=== PATIENT | male | born 1985 | race Caucasian/White ===

== ENCOUNTER → 2018-03-07 | Outpatient (REF) | payer BC ==
[2018-03-07 17:59] LABS: BASO # 0.1 10^3/uL (0.0-0.2); BASO % 0.6 % (0.0-1.0); EOS # 0.5 10^3/uL (0.0-0.50); EOS % 4.6 % (0.0-3.0); HEMATOCRIT 42.5 % (42.0-52.0); HEMOGLOBIN 14.9 g/dl (13.5-17.5); IMMATURE GRANULOCYTE % 0.2 % (0-3.0); LYMPH # 4.1 10^3/uL (1.5-4.5); LYMPH % 37.3 % (24.0-44.0); MEAN CORPUSCULAR HEMOGLOBIN 30.8 pg (27.0-33.0); MEAN CORPUSCULAR HGB CONC 35.1 g/dl (32.0-36.5); MEAN CORPUSCULAR VOLUME 87.8 fl (80.0-96.0); MONO # 0.7 10^3/uL (0.0-0.8); MONO % 6.4 % (0.0-5.0); NEUTROPHILS # 5.6 10^3/uL (1.8-7.7); NEUTROPHILS % 50.9 % (36.0-66.0); PLATELET COUNT, AUTOMATED 334 10^3/uL (150-450); RED BLOOD COUNT 4.84 10^6/uL (4.30-6.10)
[2018-03-07 18:07] LABS: PROSTATIC SPECIFIC AG MONITOR 0.7 NG/ML (< 4.0)
[2018-03-07 18:13] LABS: TESTOSTERONE 283 NG/DL (241-827)
== END ==
LOC: M LAB REF 16:40
DX: N52.2 Drug-induced erectile dysfunction (principal); F11.11 Opioid abuse, in remission
CPT/HCPCS: 84403

== ENCOUNTER → 2018-03-28 | Outpatient (REF) | payer BC | LOC: M LAB REF 12:21 | PROVIDERS: ATTEND Family Medicine Addiction Medicine | DX: R79.89 Other specified abnormal findings of blood chemistry (principal) ==

== ENCOUNTER → 2019-03-28 | Outpatient (REF) | payer BC | LOC: M LAB REF 12:56 | PROVIDERS: ATTEND Nurse Practitioner Adult Health | DX: E11.11 Type 2 diabetes mellitus with ketoacidosis with coma (principal) ==

== ENCOUNTER → 2019-12-02 | Outpatient (CLI) | payer OTHER ==
[~2019-12-02] MED LIST: BUPRENORPHINE/NALOX
== END ==
LOC: M OUTALCOH 13:36
PROVIDERS: ATTEND Psychiatry & Neurology Addiction Medicine
DX: F15.20 Other stimulant dependence, uncomplicated (principal)

== ENCOUNTER 2019-12-22 11:53 | Emergency (ER) | payer OTHER ==
[~2019-12-22] VITALS: Ht 165.1 cm; Wt 83.2 kg
[2019-12-22] MEDS ORDERED: BUPRENORPHINE/NALOX (12:03)
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
[2019-12-22] MEDS ORDERED: IBUPROFEN 800 MG TAB PO ONE (14:00)
[2019-12-22 14:10] VITALS: BP 134/75
== END 2019-12-22 14:11 | disposition home or self-care (01) ==
LOC: M ED 11:53
DX: S16.1XXA Strain of muscle, fascia and tendon at neck level, initial encounter (principal); V49.50XA Passenger injured in collision with unspecified motor vehicles in traffic accident, initial encounter; F17.210 Nicotine dependence, cigarettes, uncomplicated

== ENCOUNTER → 2019-12-24 | Outpatient (RCR) | payer OTHER | LOC: M OUTALCOH 12-09 15:35 | PROVIDERS: ATTEND Psychiatry & Neurology Addiction Medicine | DX: F10.10 Alcohol abuse, uncomplicated (principal); F15.20 Other stimulant dependence, uncomplicated ==

== ENCOUNTER 2020-01-21 13:39 | Outpatient (RCR) | payer OTHER | END 2020-01-24 | LOC: M OUTALCOH 13:39 | PROVIDERS: ATTEND Psychiatry & Neurology Addiction Medicine | DX: F10.10 Alcohol abuse, uncomplicated (principal); F15.20 Other stimulant dependence, uncomplicated ==

== ENCOUNTER 2020-02-18 13:28 | Outpatient (RCR) | payer OTHER | END 2020-02-23 | LOC: M OUTALCOH 13:28 | PROVIDERS: ATTEND Psychiatry & Neurology Addiction Medicine | DX: F10.10 Alcohol abuse, uncomplicated (principal); F15.20 Other stimulant dependence, uncomplicated ==

== ENCOUNTER 2020-03-24 16:00 | Outpatient (RCR) | payer OTHER | END 2020-03-25 | LOC: M OUTALCOH 16:00 | PROVIDERS: ATTEND Psychiatry & Neurology Addiction Medicine | DX: F10.10 Alcohol abuse, uncomplicated (principal); F15.20 Other stimulant dependence, uncomplicated ==

== ENCOUNTER 2020-04-23 14:41 | Outpatient (RCR) | payer OTHER | END 2020-04-25 | LOC: M OUTALCOH 14:41 | PROVIDERS: ATTEND Psychiatry & Neurology Addiction Medicine | DX: F10.10 Alcohol abuse, uncomplicated (principal); F15.20 Other stimulant dependence, uncomplicated ==

== ENCOUNTER 2020-05-21 11:11 | Outpatient (RCR) | payer OTHER | END 2020-05-23 | LOC: M OUTALCOH 11:11 | PROVIDERS: ATTEND Psychiatry & Neurology Addiction Medicine | DX: F10.10 Alcohol abuse, uncomplicated (principal); F15.20 Other stimulant dependence, uncomplicated ==

== ENCOUNTER → 2020-06-23 | Outpatient (RCR) | payer OTHER | LOC: M OUTALCOH 06-11 14:15 | PROVIDERS: ATTEND Psychiatry & Neurology Psychiatry | DX: F10.10 Alcohol abuse, uncomplicated (principal); F15.20 Other stimulant dependence, uncomplicated ==

== ENCOUNTER → 2020-07-23 | Outpatient (RCR) | payer OTHER | LOC: M OUTALCOH 06-25 08:45 | PROVIDERS: ATTEND Psychiatry & Neurology Psychiatry | DX: F10.10 Alcohol abuse, uncomplicated (principal); F15.20 Other stimulant dependence, uncomplicated ==

== ENCOUNTER 2020-08-20 13:23 | Outpatient (RCR) | payer OTHER | END 2020-08-23 | LOC: M OUTALCOH 13:23 | PROVIDERS: ATTEND Psychiatry & Neurology Psychiatry | DX: F10.10 Alcohol abuse, uncomplicated (principal); F15.20 Other stimulant dependence, uncomplicated ==

== ENCOUNTER 2020-09-20 14:00 | Outpatient (RCR) | payer OTHER | END 2020-09-22 | LOC: M OUTALCOH 14:00 | PROVIDERS: ATTEND Psychiatry & Neurology Psychiatry | DX: F10.10 Alcohol abuse, uncomplicated (principal); F15.20 Other stimulant dependence, uncomplicated ==

== ENCOUNTER 2020-10-22 13:03 | Outpatient (RCR) | payer OTHER | END 2020-10-23 | LOC: M OUTALCOH 13:03 | PROVIDERS: ATTEND Psychiatry & Neurology Psychiatry | DX: F10.10 Alcohol abuse, uncomplicated (principal); F15.20 Other stimulant dependence, uncomplicated ==

== ENCOUNTER 2020-11-22 15:00 | Outpatient (RCR) | payer OTHER | END 2020-11-23 | LOC: M OUTALCOH 15:00 | PROVIDERS: ATTEND Psychiatry & Neurology Psychiatry | DX: F10.10 Alcohol abuse, uncomplicated (principal); F15.20 Other stimulant dependence, uncomplicated ==

== ENCOUNTER 2020-12-20 14:00 | Outpatient (RCR) | payer OTHER | END 2020-12-23 | LOC: M OUTALCOH 14:00 | PROVIDERS: ATTEND Psychiatry & Neurology Psychiatry | DX: F10.10 Alcohol abuse, uncomplicated (principal); F15.20 Other stimulant dependence, uncomplicated ==

== ENCOUNTER 2021-01-20 09:00 | Outpatient (RCR) | payer OTHER | END 2021-01-23 | LOC: M OUTALCOH 09:00 | PROVIDERS: ATTEND Psychiatry & Neurology Psychiatry | DX: F10.10 Alcohol abuse, uncomplicated (principal); F15.20 Other stimulant dependence, uncomplicated ==

== ENCOUNTER 2021-01-21 01:37 | Emergency (ER) | payer OTHER ==
[~2021-01-21] VITALS: Ht 165.1 cm; Wt 85.4 kg
[2021-01-21 01:48] VITALS: BP 137/68
== END 2021-01-21 03:45 | disposition left against medical advice (07) ==
LOC: M ED 01:37
DX: Z53.21 Procedure and treatment not carried out due to patient leaving prior to being seen by health care provider (principal)

== ENCOUNTER 2021-02-03 09:00 | Outpatient (RCR) | payer OTHER | END 2021-02-22 | LOC: M OUTALCOH 09:00 | PROVIDERS: ATTEND Psychiatry & Neurology Psychiatry | DX: F10.10 Alcohol abuse, uncomplicated (principal); F15.20 Other stimulant dependence, uncomplicated ==

== ENCOUNTER 2021-03-16 08:00 | Outpatient (RCR) | payer OTHER | END 2021-03-25 | LOC: M OUTALCOH 08:00 | PROVIDERS: ATTEND Psychiatry & Neurology Psychiatry | DX: F10.10 Alcohol abuse, uncomplicated (principal); F15.20 Other stimulant dependence, uncomplicated ==

== ENCOUNTER 2021-04-12 13:33 | Outpatient (RCR) | payer OTHER | END 2021-04-25 | LOC: M OUTALCOH 13:33 | PROVIDERS: ATTEND Psychiatry & Neurology Psychiatry | DX: F10.10 Alcohol abuse, uncomplicated (principal); F15.20 Other stimulant dependence, uncomplicated ==

== ENCOUNTER 2021-04-18 12:52 | Outpatient (RCR) | payer OTHER | END 2021-04-25 | LOC: M OUTALCOH 12:52 | PROVIDERS: ATTEND Psychiatry & Neurology Psychiatry | DX: F15.20 Other stimulant dependence, uncomplicated (principal) ==

== ENCOUNTER → 2021-04-29 | Outpatient (CLI) | payer OTHER | LOC: M EKG 15:09 | PROVIDERS: ATTEND Family Medicine | DX: F11.20 Opioid dependence, uncomplicated (principal) ==

== ENCOUNTER → 2021-06-02 | Outpatient (CLI) | payer OTHER ==
[2021-06-02 15:22] LABS: BASO # 0.1 10^3/uL (0.0-0.2); BASO % 0.5 % (0.0-1.0); EOS # 0.2 10^3/uL (0.0-0.5); HEMATOCRIT 42.2 % (42.0-52.0); HEMOGLOBIN 14.5 g/dl (13.5-17.5); LYMPH # 3.2 10^3/uL (1.5-5.0); LYMPH % 30.7 % (24.0-44.0); MEAN CORPUSCULAR HEMOGLOBIN 29.5 pg (27.0-33.0); MEAN CORPUSCULAR HGB CONC 34.4 g/dl (32.0-36.5); MEAN CORPUSCULAR VOLUME 85.9 fl (80.0-96.0); MONO # 0.6 10^3/uL (0.0-0.8); MONO % 5.4 % (2.0-8.0); NEUTROPHILS # 6.3 10^3/uL (1.5-8.5); PLATELET COUNT, AUTOMATED 366 10^3/uL (150-450); RED BLOOD COUNT 4.91 10^6/uL (4.30-6.10); WHITE BLOOD COUNT 10.3 10^3/uL (4.0-10.0)
[2021-06-02 15:50] LABS: ALBUMIN 4.2 GM/DL (3.2-5.2); ALT/SGPT 91 U/L (12-78); BILIRUBIN,TOTAL 0.5 MG/DL (0.2-1.0); BLOOD UREA NITROGEN 21 MG/DL (7-18); CALCIUM LEVEL 9.6 MG/DL (8.5-10.1); CARBON DIOXIDE LEVEL 31 MEQ/L (21-32); CHLORIDE LEVEL 105 MEQ/L (98-107); CREATININE FOR GFR 0.94 MG/DL (0.70-1.30); GLOMERULAR FILTRATION RATE > 60.0 (>60); GLUCOSE, FASTING 105 MG/DL (70-100); SODIUM LEVEL 140 MEQ/L (136-145); TOTAL PROTEIN 7.5 GM/DL (6.4-8.2)
[2021-06-02 16:29] LABS: HEPATITIS C VIRUS ABY INDEX 0.1 INDEX (<0.8); HIV 1&2 SCREEN CENTAUR NEGATIVE (NEGATIVE)
== END ==
LOC: M LAB 14:38
PROVIDERS: ATTEND Nurse Practitioner Family
DX: F11.21 Opioid dependence, in remission (principal); F15.20 Other stimulant dependence, uncomplicated

== ENCOUNTER 2023-03-29 23:59 | Emergency (ER) | payer OTHER ==
[~2023-03-29] VITALS: Ht 165.1 cm; Wt 75.4 kg
[2023-03-29 23:59] VITALS: BP 136/70; TEMP 96.8; O2SAT 98
== END 2023-03-30 00:14 | disposition left against medical advice (07) ==
LOC: M ED 23:59
DX: Z53.21 Procedure and treatment not carried out due to patient leaving prior to being seen by health care provider (principal)

== ENCOUNTER 2023-07-14 03:13 | Inpatient (IN) | payer OTHER ==
[~2023-07-14] VITALS: Ht 165.1 cm; Wt 70.8 kg
[2023-07-14] MEDS ORDERED: VYVA30CA4 PO (03:47)
[2023-07-14] MEDS ORDERED: BUPR1FIL SL (03:47)
[2023-07-14 04:20] LABS: HEMATOCRIT 41.5 % (42.0-52.0); HEMOGLOBIN 14.2 g/dl (13.5-17.5); MEAN CORPUSCULAR HEMOGLOBIN 30.1 pg (27.0-33.0); MEAN CORPUSCULAR HGB CONC 34.2 g/dl (32.0-36.5); MEAN CORPUSCULAR VOLUME 88.1 fl (80.0-96.0); PLATELET COUNT, AUTOMATED 426 10^3/uL (150-450); RED BLOOD COUNT 4.71 10^6/uL (4.30-6.10); WHITE BLOOD COUNT 7.7 10^3/uL (4.0-10.0)
[2023-07-14 04:22] LABS: BARBITURATES URINE NEGATIVE (NEGATIVE); BENZODIAZEPINES URINE NEGATIVE (NEGATIVE); METHADONE URINE NEGATIVE (NEGATIVE); OPIATES URINE NEGATIVE (NEGATIVE); PHENCYCLIDINE URINE NEGATIVE (NEGATIVE)
[2023-07-14 04:24] LABS: ETHYL ALCOHOL (ETHANOL) 0.006 % (0.000-0.010)
[2023-07-14 04:26] LABS: ALBUMIN 3.5 G/DL (3.2-5.2); ALKALINE PHOSPHATASE 90 U/L (46-116); ALT/SGPT 47 U/L (7.0-40); AST/SGOT 44 U/L (<34); BILIRUBIN,DIRECT 0.2 MG/DL (<0.4); BILIRUBIN,TOTAL 0.5 MG/DL (0.3-1.2); BLOOD UREA NITROGEN 15 MG/DL (9-23); CARBON DIOXIDE LEVEL 27 MMOL/L (20-31); CHLORIDE LEVEL 103 MMOL/L (98-107); CREATININE FOR GFR 0.79 MG/DL (0.70-1.30); GLOMERULAR FILTRATION RATE > 60.0 (>60); GLUCOSE, FASTING 131 MG/DL (60-100); POTASSIUM SERUM 4.1 MMOL/L (3.5-5.1); SALICYLATE LEVEL < 3.0 MG/DL (<30); SODIUM LEVEL 137 MMOL/L (136-145); TOTAL PROTEIN 6.3 G/DL (5.7-8.2)
[2023-07-14 04:28] LABS: THYROID STIMULATING HORMONE 2.373 uIU/ML (0.55-4.78)
[2023-07-14 04:49] LABS: AMPHETAMINES LEVEL URINE POSITIVE (NEGATIVE); CANNABINOIDS URINE POSITIVE (NEGATIVE); COCAINE METABOLITE URINE POSITIVE (NEGATIVE)
[2023-07-14] MEDS ORDERED: HOME MED LIST COMPLETE! XX SCH ×2 (14:35→18:45)
[2023-07-14] MEDS ORDERED: ACETAMINOPHEN TAB 650MG DOSE (2X325MG) PO PRN (16:55)
[2023-07-14] MEDS ORDERED: IBUPROFEN 400MG TAB PO PRN (16:55)
[2023-07-14] MEDS ORDERED: MAALOX 30 ML SUSP *UDC PO PRN (16:55)
[2023-07-14] MEDS ORDERED: MOM 30ML SUSPENSION UDC PO PRN (16:55)
[2023-07-14] MEDS ORDERED: diphenhydrAMINE 25MG CAP PO PRN (16:55)
[2023-07-14 17:55] VITALS: BP 156/80; TEMP 97.6; O2SAT 99
[2023-07-14] MEDS: traZODone 50 MG TAB PO PRN (20:59)
[2023-07-15 06:30] VITALS: BP 144/68; TEMP 98.7; O2SAT 99
[2023-07-15 15:45] LABS: HEPATITIS B CORE ANTIBODY IGM NEGATIVE (NEGATIVE)
[2023-07-15 15:46] LABS: HEPATITIS C VIRUS ABY INDEX < 0.02 INDEX (<0.8)
[2023-07-15 16:30] VITALS: BP 119/62; TEMP 98; O2SAT 99
[2023-07-16 06:17] VITALS: BP 109/64; TEMP 97.9; O2SAT 99
[2023-07-16] MEDS: BUPRENORPHINE/NALOXONE 8-2MG SUBLINGUAL TABLET(SUBOXONE) SL ONE (12:22)
== END 2023-07-16 14:20 | disposition home or self-care (01) | DRG 754 ==
LOC: M ED 03:13 → M ED INP 16:51 → M PSY 17:50
PROVIDERS: ADMIT Student in an Organized Health Care Education/Training Program; ATTEND Student in an Organized Health Care Education/Training Program
DX: F32.A Depression, unspecified (principal); R45.850 Homicidal ideations; R45.851 Suicidal ideations; Z91.119 Patient's noncompliance with dietary regimen due to unspecified reason; F15.90 Other stimulant use, unspecified, uncomplicated; F10.10 Alcohol abuse, uncomplicated; F14.90 Cocaine use, unspecified, uncomplicated; Z59.00 Homelessness unspecified; F17.200 Nicotine dependence, unspecified, uncomplicated; R73.9 Hyperglycemia, unspecified; F12.90 Cannabis use, unspecified, uncomplicated

== ENCOUNTER → 2023-08-02 | Outpatient (CLI) | payer MEDICAID, OTHER ==
[~2023-08-02] MED LIST changes: +BUPR1FIL SL; +VYVA30CA4 PO
[2023-08-02 13:00] LABS: APPEARANCE, URINE CLEAR (CLEAR); BACTERIA, URINE AUTO NEGATIVE (NEGATIVE); BILIRUBIN, URINE AUTO NEGATIVE (NEGATIVE); BLOOD, URINE BLOOD 1+ (NEGATIVE); COLOR, URINE STRAW (YELLOW); GLUCOSE, URINE (UA) AUTO NEGATIVE (NEGATIVE); KETONE, URINE AUTO NEGATIVE (NEGATIVE); LEUKOCYTE ESTERASE, URINE AUTO NEGATIVE (NEGATIVE); NITRITE, URINE AUTO NEGATIVE (NEGATIVE); PROTEIN, URINE AUTO NEGATIVE (NEGATIVE); RBC, URINE AUTO 0 /HPF (0-3); SPECIFIC GRAVITY URINE AUTO 1.004 (1.002-1.035); SQUAMOUS EPITHELIAL CELL UR AU 0 /HPF (0-6); UROBILINOGEN, URINE AUTO 0.2 mg/dL (0.0-2.0); WBC, URINE AUTO 1 /HPF (0-3)
[2023-08-02 13:01] LABS: HEMATOCRIT 44.5 % (42.0-52.0); MEAN CORPUSCULAR HEMOGLOBIN 29.9 pg (27.0-33.0); MEAN CORPUSCULAR HGB CONC 33.7 g/dl (32.0-36.5); MEAN CORPUSCULAR VOLUME 88.6 fl (80.0-96.0); PLATELET COUNT, AUTOMATED 375 10^3/uL (150-450); RED BLOOD COUNT 5.02 10^6/uL (4.30-6.10); WHITE BLOOD COUNT 7.2 10^3/uL (4.0-10.0)
[2023-08-02 13:30] LABS: ALBUMIN 3.8 G/DL (3.2-5.2); ALKALINE PHOSPHATASE 97 U/L (46-116); ALT/SGPT 32 U/L (7.0-40); AST/SGOT 18 U/L (<34); BILIRUBIN,TOTAL 0.3 MG/DL (0.3-1.2); BLOOD UREA NITROGEN 11 MG/DL (9-23); CALCIUM LEVEL 9.6 MG/DL (8.5-10.1); CARBON DIOXIDE LEVEL 30 MMOL/L (20-31); CHLORIDE LEVEL 103 MMOL/L (98-107); GLOMERULAR FILTRATION RATE > 60.0 (>60); GLUCOSE, FASTING 109 MG/DL (60-100); POTASSIUM SERUM 4.2 MMOL/L (3.5-5.1); SODIUM LEVEL 139 MMOL/L (136-145); TOTAL PROTEIN 6.7 G/DL (5.7-8.2)
== END ==
LOC: M LAB 12:14
PROVIDERS: ATTEND Registered Nurse Psychiatric/Mental Health
DX: F11.20 Opioid dependence, uncomplicated (principal)

== ENCOUNTER 2023-08-16 08:46 | Emergency (ER) | payer OTHER ==
[~2023-08-16] VITALS: Ht 165.1 cm; Wt 69.5 kg
[2023-08-16] MEDS: NALOXONE 2MG/2ML SYRINGE ONE (09:06)
[2023-08-16] MEDS: DERMABOND TOPICAL SKIN ADHESIVE TOP ONE (10:15)
[2023-08-16 10:49] LABS: BASO % 0.4 % (0.0-1.0); EOS % 0.4 % (0.0-3.0); HEMATOCRIT 39.7 % (42.0-52.0); HEMOGLOBIN 13.3 g/dl (13.5-17.5); LYMPH # 2.4 10^3/uL (1.5-5.0); MEAN CORPUSCULAR HEMOGLOBIN 29.6 pg (27.0-33.0); MEAN CORPUSCULAR HGB CONC 33.5 g/dl (32.0-36.5); MEAN CORPUSCULAR VOLUME 88.2 fl (80.0-96.0); MONO # 0.5 10^3/uL (0.0-0.8); NEUTROPHILS # 7.7 10^3/uL (1.5-8.5); PLATELET COUNT, AUTOMATED 394 10^3/uL (150-450); WHITE BLOOD COUNT 10.7 10^3/uL (4.0-10.0)
[2023-08-16 11:11] LABS: ETHYL ALCOHOL (ETHANOL) < 0.003 % (0.000-0.010)
[2023-08-16 11:13] LABS: ALBUMIN 4.2 G/DL (3.2-5.2); ALKALINE PHOSPHATASE 89 U/L (46-116); ALT/SGPT 61 U/L (7.0-40); AST/SGOT 51 U/L (<34); BILIRUBIN,DIRECT 0.3 MG/DL (<0.4); BILIRUBIN,TOTAL 0.9 MG/DL (0.3-1.2); BLOOD UREA NITROGEN 22 MG/DL (9-23); CALCIUM LEVEL 9.2 MG/DL (8.5-10.1); CARBON DIOXIDE LEVEL 29 MMOL/L (20-31); CHLORIDE LEVEL 103 MMOL/L (98-107); CREATININE FOR GFR 0.87 MG/DL (0.70-1.30); GLOMERULAR FILTRATION RATE > 60.0 (>60); GLUCOSE, FASTING 90 MG/DL (60-100); POTASSIUM SERUM 4.5 MMOL/L (3.5-5.1); SALICYLATE LEVEL < 3.0 MG/DL (<30); SODIUM LEVEL 138 MMOL/L (136-145); TOTAL PROTEIN 6.7 G/DL (5.7-8.2)
[2023-08-16 11:16] LABS: CPK CREATINE PHOSPHOKINASE 275 U/L (46-171); THYROID STIMULATING HORMONE 1.889 uIU/ML (0.55-4.78)
[2023-08-16] MEDS: BOOSTRIX VACCINE (TETANUS/DIPHTH/ACEL. PERTUSSIS) 0.5ML SYR IM ONE (11:39)
[2023-08-16 11:49] LABS: VENOUS BASE EXCESS 1.5 (-2.0-2.0); VENOUS HCO3 28.7 MMOL/L (23.0-27.0); VENOUS O2 SATURATION 78.8 % (60.0-80.0); VENOUS PARTIAL PRESSURE CO2 56.4 mmHg (38.0-50.0); VENOUS PARTIAL PRESSURE O2 44.1 mmHg (30.0-50.0); VENOUS PH 7.325 UNITS (7.330-7.430); VENOUS STANDARD HCO3 25.4 MMOL/L; VENOUS TOTAL CO2 30.5 MMOL/L (24.0-28.0)
[2023-08-16] MEDS: MULTIVITAMIN -ADULT INJECTION 10 ML, THIAMINE INJection 100 MG, FOLIC ACID 1 MG in NS 1... IV ONE (12:36)
[2023-08-16 16:44] VITALS: BP 110/59; TEMP 97.8; O2SAT 100
== END 2023-08-16 16:48 | disposition home or self-care (01) ==
LOC: M ED 08:46
DX: S01.412A Laceration without foreign body of left cheek and temporomandibular area, initial encounter (principal); F19.10 Other psychoactive substance abuse, uncomplicated; E86.0 Dehydration; W19.XXXA Unspecified fall, initial encounter; H05.223 Edema of bilateral orbit; R00.1 Bradycardia, unspecified; Z59.00 Homelessness unspecified; Y92.410 Unspecified street and highway as the place of occurrence of the external cause; Y93.89 Activity, other specified; Y99.9 Unspecified external cause status; Z23 Encounter for immunization
CPT/HCPCS: 70450; 70486; 71045; 72125; 80048; 80076; 80143; 82077; 82140; 82550; 82553; 82803; 83605; 84443; 84484; 85025; 90471; 90715; 93005; 93041; 94760; 96374; 99285; J2310; J3411

== ENCOUNTER 2023-08-21 10:54 | Emergency (ER) | payer OTHER ==
[~2023-08-21] VITALS: Ht 165.1 cm; Wt 69.5 kg
[2023-08-21] MEDS: NS 1,000 ML IV ONE (11:35)
[2023-08-21] MEDS: NALOXONE INJ 0.4MG/1ML VIAL IV ONE (11:40)
[2023-08-21 12:05] LABS: ABG BASE EXCESS -1.7 (-2.0-2.0); ABG HCO3 23.1 MMOL/L (22.0-26.0); ABG O2 SATURATION 98.7 % (95.0-99.0); ABG PARTIAL PRESSURE CO2 39.3 mmHg (35.0-45.0); ABG PARTIAL PRESSURE O2 145.2 mmHg (75.0-100.0); ABG STANDARD HCO3 23.1 MMOL/L. (22.0-26.0); ABG TOTAL CO2 24.3 MMOL/L (22.0-29.0); ABG pH (ARTERIAL) 7.387 UNITS (7.350-7.450)
[2023-08-21 12:06] LABS: BASO # 0.1 10^3/uL (0.0-0.2); BASO % 0.4 % (0.0-1.0); EOS # 0.6 10^3/uL (0.0-0.5); EOS % 4.7 % (0.0-3.0); HEMATOCRIT 41.7 % (42.0-52.0); HEMOGLOBIN 14.3 g/dl (13.5-17.5); LYMPH # 2.4 10^3/uL (1.5-5.0); LYMPH % 20.6 % (24.0-44.0); MEAN CORPUSCULAR HGB CONC 34.3 g/dl (32.0-36.5); MEAN CORPUSCULAR VOLUME 87.4 fl (80.0-96.0); MONO # 0.6 10^3/uL (0.0-0.8); MONO % 4.7 % (2.0-8.0); NEUTROPHILS # 8.1 10^3/uL (1.5-8.5); NEUTROPHILS % 69.3 % (36.0-66.0); PLATELET COUNT, AUTOMATED 384 10^3/uL (150-450); RED BLOOD COUNT 4.77 10^6/uL (4.30-6.10); WHITE BLOOD COUNT 11.7 10^3/uL (4.0-10.0)
[2023-08-21 12:29] LABS: ETHYL ALCOHOL (ETHANOL) < 0.003 % (0.000-0.010)
[2023-08-21 12:30] LABS: SALICYLATE LEVEL < 3.0 MG/DL (<30)
[2023-08-21 12:31] LABS: ALBUMIN 3.8 G/DL (3.2-5.2); ALKALINE PHOSPHATASE 116 U/L (46-116); ALT/SGPT 42 U/L (7.0-40); AST/SGOT 36 U/L (<34); BILIRUBIN,DIRECT 0.2 MG/DL (<0.4); BILIRUBIN,TOTAL 0.6 MG/DL (0.3-1.2); BLOOD UREA NITROGEN 18 MG/DL (9-23); CALCIUM LEVEL 8.8 MG/DL (8.5-10.1); CARBON DIOXIDE LEVEL 28 MMOL/L (20-31); CHLORIDE LEVEL 100 MMOL/L (98-107); GLOMERULAR FILTRATION RATE > 60.0 (>60); GLUCOSE, FASTING 114 MG/DL (60-100); POTASSIUM SERUM 3.6 MMOL/L (3.5-5.1); SODIUM LEVEL 134 MMOL/L (136-145); TOTAL PROTEIN 6.6 G/DL (5.7-8.2)
[2023-08-21 12:33] LABS: THYROID STIMULATING HORMONE 1.317 uIU/ML (0.55-4.78)
[2023-08-21 12:36] LABS: CPK CREATINE PHOSPHOKINASE 552 U/L (46-171)
[2023-08-21 13:40] LABS: BARBITURATES URINE NEGATIVE (NEGATIVE); BENZODIAZEPINES URINE NEGATIVE (NEGATIVE); COCAINE METABOLITE URINE NEGATIVE (NEGATIVE); METHADONE URINE NEGATIVE (NEGATIVE)
[2023-08-21 13:41] LABS: CANNABINOIDS URINE NEGATIVE (NEGATIVE); OPIATES URINE NEGATIVE (NEGATIVE); PHENCYCLIDINE URINE NEGATIVE (NEGATIVE)
[2023-08-21 13:44] LABS: AMPHETAMINES LEVEL URINE POSITIVE (NEGATIVE)
[2023-08-21 19:15] VITALS: TEMP 98.4
[2023-08-22 04:00] VITALS: BP 109/58; O2SAT 100
== END 2023-08-22 06:11 | disposition home or self-care (01) ==
LOC: EDBD 10:54 → M ED 10:54
DX: F19.10 Other psychoactive substance abuse, uncomplicated (principal); F10.10 Alcohol abuse, uncomplicated
CPT/HCPCS: 36600; 70450; 80048; 80076; 80143; 80307; 82077; 82550; 82803; 83605; 84443; 85025; 93005; 93041; 94760; 99285; J2310

== ENCOUNTER 2023-12-19 17:35 | Emergency (ER) | payer OTHER ==
[~2023-12-19] VITALS: Ht 165.1 cm; Wt 85.5 kg
[2023-12-19] MEDS: LORazepam 2 MG/ML 1ML VIAL IM STA (18:02)
[2023-12-20] MEDS ORDERED: HOME MED LIST COMPLETE! XX SCH (03:40)
[2023-12-20 05:51] VITALS: BP 137/68; TEMP 98.2; O2SAT 99
== END 2023-12-20 06:03 | disposition home or self-care (01) ==
LOC: EDBD 17:35 → M ED 17:35
DX: F19.10 Other psychoactive substance abuse, uncomplicated (principal)
CPT/HCPCS: 96372; 99284; J2060

== ENCOUNTER 2023-12-22 22:21 | Emergency (ER) | payer OTHER ==
[~2023-12-22] VITALS: Ht 165.1 cm; Wt 75.6 kg
[2023-12-22 23:25] LABS: HEMATOCRIT 38.6 % (42.0-52.0); HEMOGLOBIN 13.2 g/dl (13.5-17.5); MEAN CORPUSCULAR HEMOGLOBIN 30.1 pg (27.0-33.0); MEAN CORPUSCULAR HGB CONC 34.2 g/dl (32.0-36.5); MEAN CORPUSCULAR VOLUME 88.1 fl (80.0-96.0); PLATELET COUNT, AUTOMATED 432 10^3/uL (150-450); RED BLOOD COUNT 4.38 10^6/uL (4.30-6.10); WHITE BLOOD COUNT 8.2 10^3/uL (4.0-10.0)
[2023-12-22] MEDS ORDERED: HOME MED LIST COMPLETE! XX SCH (23:25)
[2023-12-22 23:42] LABS: BARBITURATES URINE NEGATIVE (NEGATIVE); BENZODIAZEPINES URINE NEGATIVE (NEGATIVE); CANNABINOIDS URINE NEGATIVE (NEGATIVE); COCAINE METABOLITE URINE NEGATIVE (NEGATIVE); METHADONE URINE NEGATIVE (NEGATIVE); OPIATES URINE NEGATIVE (NEGATIVE); PHENCYCLIDINE URINE NEGATIVE (NEGATIVE)
[2023-12-22 23:44] LABS: AMPHETAMINES LEVEL URINE POSITIVE (NEGATIVE); ETHYL ALCOHOL (ETHANOL) < 0.003 % (0.000-0.010)
[2023-12-22 23:46] LABS: ALBUMIN 4.2 G/DL (3.2-5.2); ALKALINE PHOSPHATASE 107 U/L (46-116); ALT/SGPT 40 U/L (7.0-40); AST/SGOT 18 U/L (<34); BILIRUBIN,DIRECT 0.2 MG/DL (<0.4); BILIRUBIN,TOTAL 0.4 MG/DL (0.3-1.2); BLOOD UREA NITROGEN 10 MG/DL (9-23); CALCIUM LEVEL 9.5 MG/DL (8.5-10.1); CARBON DIOXIDE LEVEL 27 MMOL/L (20-31); CHLORIDE LEVEL 109 MMOL/L (98-107); CREATININE FOR GFR 0.71 MG/DL (0.70-1.30); GLOMERULAR FILTRATION RATE > 60.0 (>60); GLUCOSE, FASTING 123 MG/DL (60-100); POTASSIUM SERUM 4.1 MMOL/L (3.5-5.1); SALICYLATE LEVEL < 3.0 MG/DL (<30); SODIUM LEVEL 141 MMOL/L (136-145); TOTAL PROTEIN 7.4 G/DL (5.7-8.2)
[2023-12-22 23:48] LABS: THYROID STIMULATING HORMONE 0.291 uIU/ML (0.55-4.78)
[2023-12-23] MEDS: ACETAMINOPHEN TAB 650MG DOSE (2X325MG) PO ONE (00:47)
[2023-12-23 07:37] VITALS: BP 133/65; TEMP 97.5; O2SAT 99
[2023-12-23] MEDS ORDERED: OVERDOSE RESCUE KIT XX SCH (08:00)
== END 2023-12-23 08:25 | disposition home or self-care (01) ==
LOC: M ED 22:21
DX: Z60.0 Problems of adjustment to life-cycle transitions (principal); F43.10 Post-traumatic stress disorder, unspecified; F12.10 Cannabis abuse, uncomplicated; F19.10 Other psychoactive substance abuse, uncomplicated; Z59.00 Homelessness unspecified

== ENCOUNTER 2024-01-04 08:18 | Emergency (ER) | payer OTHER ==
[~2024-01-04] VITALS: Ht 165.1 cm; Wt 77.3 kg
[2024-01-04 08:20] VITALS: BP 141/69; TEMP 99.8; O2SAT 96
[2024-01-04] MEDS ORDERED: BUPR1FIL (08:24)
== END 2024-01-04 09:30 | disposition left against medical advice (07) ==
LOC: M ED 08:18
DX: Z53.21 Procedure and treatment not carried out due to patient leaving prior to being seen by health care provider (principal)

== ENCOUNTER 2024-03-12 19:42 | Emergency (ER) | payer OTHER ==
[~2024-03-12] VITALS: Ht 165.1 cm; Wt 66.9 kg
[~2024-03-12 19:42] MED LIST changes: +BUPR1FIL
[2024-03-12 19:45] VITALS: BP 121/79; TEMP 97.5; O2SAT 98
== END 2024-03-12 20:32 | disposition left against medical advice (07) ==
LOC: M ED 19:42
DX: Z53.21 Procedure and treatment not carried out due to patient leaving prior to being seen by health care provider (principal)

== ENCOUNTER 2024-03-12 21:59 | Emergency (ER) | payer OTHER ==
[~2024-03-12] VITALS: Ht 165.1 cm; Wt 68.2 kg
[2024-03-12 22:03] VITALS: BP 131/74; TEMP 98.9; O2SAT 100
[2024-03-12 22:53] LABS: APPEARANCE, URINE CLEAR (CLEAR); BACTERIA, URINE AUTO NEGATIVE (NEGATIVE); BILIRUBIN, URINE AUTO NEGATIVE (NEGATIVE); BLOOD, URINE BLOOD NEGATIVE (NEGATIVE); COLOR, URINE YELLOW (YELLOW); GLUCOSE, URINE (UA) AUTO NEGATIVE (NEGATIVE); KETONE, URINE AUTO NEGATIVE (NEGATIVE); LEUKOCYTE ESTERASE, URINE AUTO NEGATIVE (NEGATIVE); MUCUS, URINE SMALL (NEGATIVE); NITRITE, URINE AUTO NEGATIVE (NEGATIVE); PROTEIN, URINE AUTO NEGATIVE (NEGATIVE); RBC, URINE AUTO 1 /HPF (0-3); SPECIFIC GRAVITY URINE AUTO 1.025 (1.002-1.035); SQUAMOUS EPITHELIAL CELL UR AU 0 /HPF (0-6); WBC, URINE AUTO 1 /HPF (0-3)
== END 2024-03-13 05:00 | disposition left against medical advice (07) ==
LOC: M ED 21:59
DX: Z53.21 Procedure and treatment not carried out due to patient leaving prior to being seen by health care provider (principal)

== ENCOUNTER 2024-03-15 03:40 | Emergency (ER) | payer OTHER ==
[~2024-03-15] VITALS: Ht 162.6 cm; Wt 71.4 kg
[2024-03-15 05:07] VITALS: TEMP 96.5; O2SAT 98
[2024-03-15 06:12] VITALS: BP 148/84
== END 2024-03-15 07:02 | disposition left against medical advice (07) ==
LOC: M ED 03:40
DX: Z53.21 Procedure and treatment not carried out due to patient leaving prior to being seen by health care provider (principal)

== ENCOUNTER 2024-04-28 08:04 | Emergency (ER) | payer OTHER ==
[~2024-04-28] VITALS: Ht 165.1 cm; Wt 65.3 kg
[2024-04-28 09:14] LABS: BASO % 0.3 % (0.0-1.0); EOS # 0.1 10^3/uL (0.0-0.5); EOS % 0.5 % (0.0-3.0); HEMATOCRIT 46.9 % (42.0-52.0); LYMPH # 0.7 10^3/uL (1.5-5.0); LYMPH % 4.4 % (24.0-44.0); MEAN CORPUSCULAR HEMOGLOBIN 29.7 pg (27.0-33.0); MEAN CORPUSCULAR HGB CONC 34.1 g/dl (32.0-36.5); MEAN CORPUSCULAR VOLUME 87.2 fl (80.0-96.0); MONO # 0.5 10^3/uL (0.0-0.8); MONO % 3.4 % (2.0-8.0); NEUTROPHILS # 13.4 10^3/uL (1.5-8.5); NEUTROPHILS % 90.9 % (36.0-66.0); PLATELET COUNT, AUTOMATED 348 10^3/uL (150-450); RED BLOOD COUNT 5.38 10^6/uL (4.30-6.10); WHITE BLOOD COUNT 14.8 10^3/uL (4.0-10.0)
[2024-04-28 09:16] LABS: KETONE, URINE AUTO RFX NEGATIVE (NEGATIVE); LEUKOCYTE ESTERASE UR AUTO RFX NEGATIVE (NEGATIVE); MUCUS, URINE RFX SMALL (NEGATIVE); NITRITE, URINE AUTO RFX NEGATIVE (NEGATIVE); RBC, URINE AUTO RFX 5 /HPF (0-3); SQUAM EPITHELIAL CELL UR AURFX 0 /HPF (0-6); WBC, URINE AUTO RFX 1 /HPF (0-3)
[2024-04-28 09:30] LABS: LIPASE 26 U/L (12-53)
[2024-04-28 09:31] LABS: AMYLASE 58 U/L (30-118)
[2024-04-28 09:32] LABS: ALKALINE PHOSPHATASE 99 U/L (40-129); ALT/SGPT 27 U/L (7.0-40); AST/SGOT 14 U/L (<34); BILIRUBIN,DIRECT 0.6 MG/DL (<0.4); BILIRUBIN,TOTAL 1.6 MG/DL (0.3-1.2); BLOOD UREA NITROGEN 20 MG/DL (9-23); CALCIUM LEVEL 9.3 MG/DL (8.5-10.1); CARBON DIOXIDE LEVEL 26 MMOL/L (20-31); CHLORIDE LEVEL 102 MMOL/L (98-107); CREATININE FOR GFR 0.67 MG/DL (0.70-1.30); GLOMERULAR FILTRATION RATE > 60.0 (>60); GLUCOSE, FASTING 127 MG/DL (60-100); POTASSIUM SERUM 4.7 MMOL/L (3.5-5.1); SODIUM LEVEL 137 MMOL/L (136-145); TOTAL PROTEIN 7.1 G/DL (5.7-8.2)
[2024-04-28] MEDS: ONDANSETRON 4MG 2ML VIAL IV ONE (11:12)
[2024-04-28] MEDS ORDERED: ISOVUE-370 76% 100ML VIAL As Ordered ONE (11:15)
[2024-04-28] MEDS: ACETAMINOPHEN 500 MG TAB PO ONE (11:41)
[2024-04-28 12:16] VITALS: BP 131/81; TEMP 97; O2SAT 100
== END 2024-04-28 12:19 | disposition home or self-care (01) ==
LOC: M ED 08:04
DX: K52.9 Noninfective gastroenteritis and colitis, unspecified (principal); F17.200 Nicotine dependence, unspecified, uncomplicated; F19.10 Other psychoactive substance abuse, uncomplicated; Z79.899 Other long term (current) drug therapy
CPT/HCPCS: 74177; 80048; 80076; 81001; 82150; 83690; 85025; 87486; 87581; 87633; 87798; 96374; 99284; J2405; Q9967

== ENCOUNTER 2024-05-07 14:10 | Emergency (ER) | payer OTHER ==
[~2024-05-07] VITALS: Ht 165.1 cm; Wt 68.4 kg
[2024-05-07 17:19] VITALS: BP 127/73; TEMP 97.5; O2SAT 98
== END 2024-05-07 17:11 | disposition home or self-care (01) ==
LOC: M ED 14:10
DX: S20.211A Contusion of right front wall of thorax, initial encounter (principal); F19.10 Other psychoactive substance abuse, uncomplicated; W10.9XXA Fall (on) (from) unspecified stairs and steps, initial encounter; Z79.899 Other long term (current) drug therapy; Y92.009 Unspecified place in unspecified non-institutional (private) residence as the place of occurrence of the external cause; Y93.89 Activity, other specified; Y99.9 Unspecified external cause status

== ENCOUNTER 2024-05-23 02:09 | Emergency (ER) | payer OTHER ==
[~2024-05-23] VITALS: Ht 165.1 cm; Wt 64.0 kg
[2024-05-23 02:11] VITALS: BP 136/96; TEMP 96.1; O2SAT 99
== END 2024-05-23 06:27 | disposition left against medical advice (07) ==
LOC: M ED 02:09
DX: J02.9 Acute pharyngitis, unspecified (principal); R05.9 Cough, unspecified; F17.200 Nicotine dependence, unspecified, uncomplicated; Z79.899 Other long term (current) drug therapy; Z53.9 Procedure and treatment not carried out, unspecified reason

== ENCOUNTER 2024-06-13 20:25 | Emergency (ER) | payer OTHER ==
[~2024-06-13] VITALS: Ht 165.1 cm; Wt 67.5 kg
[2024-06-13 20:28] VITALS: TEMP 98.5; O2SAT 99
[2024-06-13 20:34] VITALS: BP 150/90
== END 2024-06-14 01:00 | disposition left against medical advice (07) ==
LOC: M ED 20:25
DX: Z53.21 Procedure and treatment not carried out due to patient leaving prior to being seen by health care provider (principal)

== ENCOUNTER 2024-06-20 04:20 | Emergency (ER) | payer OTHER ==
[2024-06-20 04:50] VITALS: BP 133/76; TEMP 97.8; O2SAT 100
== END 2024-06-20 07:05 | disposition left against medical advice (07) ==
LOC: M ED 04:20
DX: Z53.21 Procedure and treatment not carried out due to patient leaving prior to being seen by health care provider (principal)

== ENCOUNTER 2024-06-21 02:57 | Emergency (ER) | payer OTHER ==
[~2024-06-21] VITALS: Ht 165.1 cm; Wt 64.8 kg
[2024-06-21 03:02] VITALS: BP 124/78; TEMP 98.3; O2SAT 97
== END 2024-06-21 06:36 | disposition left against medical advice (07) ==
LOC: M ED 02:57
DX: Z53.21 Procedure and treatment not carried out due to patient leaving prior to being seen by health care provider (principal)

== ENCOUNTER 2024-06-30 12:40 | Inpatient (IN) | payer OTHER, SELFPAY ==
[~2024-06-30] VITALS: Ht 165.1 cm; Wt 65.7 kg
[~2024-06-30 12:40] MED LIST changes: -BUPR1FIL
[2024-06-30 14:08] LABS: BASO % 0.1 % (0.0-1.0); EOS # 0.1 10^3/uL (0.0-0.5); EOS % 0.3 % (0.0-3.0); HEMATOCRIT 41.6 % (42.0-52.0); HEMOGLOBIN 13.8 g/dl (13.5-17.5); LYMPH # 1.7 10^3/uL (1.5-5.0); LYMPH % 8.4 % (24.0-44.0); MEAN CORPUSCULAR HEMOGLOBIN 30.2 pg (27.0-33.0); MEAN CORPUSCULAR HGB CONC 33.2 g/dl (32.0-36.5); MONO % 5.1 % (2.0-8.0); NEUTROPHILS # 17.2 10^3/uL (1.5-8.5); NEUTROPHILS % 85.5 % (36.0-66.0); PLATELET COUNT, AUTOMATED 333 10^3/uL (150-450); RED BLOOD COUNT 4.57 10^6/uL (4.30-6.10); WHITE BLOOD COUNT 20.1 10^3/uL (4.0-10.0)
[2024-06-30 14:16] LABS: ERYTHROCYTE SEDIMENTATION RATE 32 mm/hr (0-15)
[2024-06-30 14:30] LABS: BLOOD UREA NITROGEN 9 MG/DL (9-23); C REACTIVE PROTEIN QUANTITATIV 4.64 MG/DL (<1.0); CALCIUM LEVEL 8.9 MG/DL (8.5-10.1); CARBON DIOXIDE LEVEL 30 MMOL/L (20-31); CHLORIDE LEVEL 101 MMOL/L (98-107); CREATININE FOR GFR 0.85 MG/DL (0.70-1.30); GLOMERULAR FILTRATION RATE > 60.0 (>60); GLUCOSE, FASTING 80 MG/DL (60-100); POTASSIUM SERUM 4.1 MMOL/L (3.5-5.1); SODIUM LEVEL 137 MMOL/L (136-145)
[2024-06-30] MEDS: ACETAMINOPHEN 500 MG TAB PO ONE (15:09)
[2024-06-30] MEDS ORDERED: NS (Normal Saline) 0.9% 1,000 ML IV ONE (15:55)
[2024-06-30] MEDS: VANCOMYCIN HCL 1,250 MG, VIAL MATE ADAPTER 1 EACH in NS 250 ML IV ONE (16:05)
[2024-06-30] MEDS: NS (Normal Saline) 0.9% 1,000 ML IV ONE (16:07)
[2024-06-30] MEDS ORDERED: MIRALAX *UNIT DOSE* 17GM PACKET PO PRN (16:15)
[2024-06-30] MEDS ORDERED: HOME MED LIST COMPLETE! XX SCH (16:50)
[2024-06-30 17:59] LABS: AMPHETAMINES LEVEL URINE NEGATIVE (NEGATIVE); BARBITURATES URINE NEGATIVE (NEGATIVE); BENZODIAZEPINES URINE NEGATIVE (NEGATIVE); COCAINE METABOLITE URINE NEGATIVE (NEGATIVE); METHADONE URINE NEGATIVE (NEGATIVE); OPIATES URINE NEGATIVE (NEGATIVE); PHENCYCLIDINE URINE NEGATIVE (NEGATIVE)
[2024-06-30 18:00] LABS: APPEARANCE, URINE CLEAR (CLEAR); BACTERIA, URINE AUTO NEGATIVE (NEGATIVE); BILIRUBIN, URINE AUTO NEGATIVE (NEGATIVE); BLOOD, URINE BLOOD NEGATIVE (NEGATIVE); COLOR, URINE YELLOW (YELLOW); GLUCOSE, URINE (UA) AUTO NEGATIVE (NEGATIVE); KETONE, URINE AUTO NEGATIVE (NEGATIVE); LEUKOCYTE ESTERASE, URINE AUTO NEGATIVE (NEGATIVE); NITRITE, URINE AUTO NEGATIVE (NEGATIVE); PROTEIN, URINE AUTO NEGATIVE (NEGATIVE); RBC, URINE AUTO 3 /HPF (0-3); SPECIFIC GRAVITY URINE AUTO 1.012 (1.002-1.035); SQUAMOUS EPITHELIAL CELL UR AU 0 /HPF (0-6); UROBILINOGEN, URINE AUTO 0.2 mg/dL (0.0-2.0); WBC, URINE AUTO 1 /HPF (0-3)
[2024-06-30 18:01] LABS: CANNABINOIDS URINE POSITIVE (NEGATIVE)
[2024-06-30] MEDS: PIPERACILLIN/TAZOBACTAM SOD 4.5 GM in DEXTROSE 5% (D5W) ADV/MINI-BAG 50 ML IV SCH (20:04)
[2024-06-30] MEDS: LR 1,000 ML IV SCH (20:11)
[2024-06-30] MEDS: LORazepam 1 MG TAB PO ONE (21:16)
[2024-07-01] VITALS (9 sets, daily range): BP systolic 90–134; BP diastolic 56–68; TEMP 97.2–97.9; O2SAT 90–99
[2024-07-01] MEDS: ACETAMINOPHEN 500 MG TAB PO SCH (00:19)
[2024-07-01 07:25] LABS: HEMATOCRIT 37.6 % (42.0-52.0); HEMOGLOBIN 12.3 g/dl (13.5-17.5); MEAN CORPUSCULAR HEMOGLOBIN 29.7 pg (27.0-33.0); MEAN CORPUSCULAR HGB CONC 32.7 g/dl (32.0-36.5); MEAN CORPUSCULAR VOLUME 90.8 fl (80.0-96.0); PLATELET COUNT, AUTOMATED 285 10^3/uL (150-450); RED BLOOD COUNT 4.14 10^6/uL (4.30-6.10); WHITE BLOOD COUNT 11.5 10^3/uL (4.0-10.0)
[2024-07-01 07:47] LABS: BLOOD UREA NITROGEN 8 MG/DL (9-23); CALCIUM LEVEL 8.3 MG/DL (8.5-10.1); CARBON DIOXIDE LEVEL 29 MMOL/L (20-31); CHLORIDE LEVEL 107 MMOL/L (98-107); CREATININE FOR GFR 0.62 MG/DL (0.70-1.30); GLOMERULAR FILTRATION RATE > 60.0 (>60); GLUCOSE, FASTING 124 MG/DL (60-100); SODIUM LEVEL 142 MMOL/L (136-145)
[2024-07-01] MEDS ORDERED: fentaNYL 100 MCG/2 ML INJECTION As Ordered ONE (12:57)
[2024-07-01] MEDS ORDERED: MIDAZOLAM INJ 2MG/2ML VIAL As Ordered ONE (12:58)
[2024-07-01] MEDS ORDERED: dexmedeTOMIDine (4MCG/ML)200MCG/50ML BTL (PRECEDEX) As Ordered ONE (12:59)
[2024-07-01] MEDS ORDERED: propofoL 200 MG/20 ML VIAL As Ordered ONE (13:49)
[2024-07-01] MEDS ORDERED: LIDOCAINE 2% 100MG/5ML SDV (FOR ANES.) As Ordered ONE (13:49)
[2024-07-01] MEDS: LR 1,000 ML IV SCH (14:15)
[2024-07-01] MEDS ORDERED: ONDANSETRON 4MG 2ML VIAL IV PRN (14:15)
[2024-07-01] MEDS ORDERED: fentaNYL 100 MCG/2 ML INJECTION IV PRN (14:15)
[2024-07-01] MEDS ORDERED: oxyCODONE 5MG TAB PO PRN (14:15)
[2024-07-01] MEDS ORDERED: HYDROMORPHONE HCL 0.5 MG/ 0.5 ML SYRINGE IV PRN (14:15)
[2024-07-01] MEDS: DAPTOmycin 500 MG in NS 50 ML IV SCH (19:00)
[2024-07-01 19:08] LABS: HEPATITIS B SURFACE ANTIGEN NEGATIVE (NEGATIVE)
[2024-07-01 19:21] LABS: HIV 1&2 SCREEN NEGATIVE (NEGATIVE)
[2024-07-01 19:28] LABS: HEPATITIS C VIRUS ABY INDEX 0.02 INDEX (<0.8)
[2024-07-01] MEDS: BUPRENORPHINE/NALOXONE 8-2MG SUBLINGUAL TABLET(SUBOXONE) SL SCH (23:35)
[2024-07-02] VITALS (7 sets, daily range): BP systolic 114–125; BP diastolic 60–72; TEMP 97–97.9; O2SAT 95–98
[2024-07-02 06:17] LABS: HEMATOCRIT 36.7 % (42.0-52.0); HEMOGLOBIN 12.4 g/dl (13.5-17.5); MEAN CORPUSCULAR HEMOGLOBIN 30.3 pg (27.0-33.0); MEAN CORPUSCULAR HGB CONC 33.8 g/dl (32.0-36.5); MEAN CORPUSCULAR VOLUME 89.7 fl (80.0-96.0); PLATELET COUNT, AUTOMATED 337 10^3/uL (150-450); RED BLOOD COUNT 4.09 10^6/uL (4.30-6.10); WHITE BLOOD COUNT 12.9 10^3/uL (4.0-10.0)
[2024-07-02 06:38] LABS: BLOOD UREA NITROGEN 12 MG/DL (9-23); CALCIUM LEVEL 8.3 MG/DL (8.5-10.1); CARBON DIOXIDE LEVEL 28 MMOL/L (20-31); CHLORIDE LEVEL 105 MMOL/L (98-107); CREATININE FOR GFR 0.64 MG/DL (0.70-1.30); GLOMERULAR FILTRATION RATE > 60.0 (>60); GLUCOSE, FASTING 141 MG/DL (60-100); POTASSIUM SERUM 4.3 MMOL/L (3.5-5.1); SODIUM LEVEL 140 MMOL/L (136-145)
[2024-07-02] MEDS: HEPARIN SOD (PORCINE) 5000UNITS/ML 1ML VIAL/SYRINGE SC SCH (20:20)
[2024-07-03 03:25] VITALS: BP 117/71; TEMP 97.5; O2SAT 94
[2024-07-03 05:22] LABS: BASO # 0.1 10^3/uL (0.0-0.2); BASO % 0.6 % (0.0-1.0); EOS # 0.2 10^3/uL (0.0-0.5); EOS % 2.6 % (0.0-3.0); HEMATOCRIT 38.8 % (42.0-52.0); HEMOGLOBIN 12.7 g/dl (13.5-17.5); LYMPH # 3.7 10^3/uL (1.5-5.0); LYMPH % 45.7 % (24.0-44.0); MEAN CORPUSCULAR HEMOGLOBIN 29.7 pg (27.0-33.0); MEAN CORPUSCULAR HGB CONC 32.7 g/dl (32.0-36.5); MEAN CORPUSCULAR VOLUME 90.7 fl (80.0-96.0); MONO # 0.4 10^3/uL (0.0-0.8); MONO % 5.3 % (2.0-8.0); NEUTROPHILS # 3.7 10^3/uL (1.5-8.5); NEUTROPHILS % 45.4 % (36.0-66.0); PLATELET COUNT, AUTOMATED 345 10^3/uL (150-450); RED BLOOD COUNT 4.28 10^6/uL (4.30-6.10); WHITE BLOOD COUNT 8.1 10^3/uL (4.0-10.0)
[2024-07-03 12:00] VITALS: BP 115/72; TEMP 97.2; O2SAT 96
[2024-07-03] MEDS ORDERED: DALV1SOL IV (13:58)
[2024-07-03] MEDS: oxyCODONE 5MG TAB PO PRN (15:43)
[2024-07-04 13:12] LABS: HEPATITIS B SURF AB QUANT 270 mIU/mL (> OR = 10)
[2024-07-04 14:07] LABS: HEPATITIS B CORE ANTIBODY IGG NON-REACTIVE (NON-REACTIVE)
== END 2024-07-03 15:56 | disposition home or self-care (01) | DRG 710 ==
LOC: EDBD 12:40 → M ED 12:40 → M ED INP 16:17 → M MS4PR 07-01 12:03 → M MSPAV 07-02 14:36
PROVIDERS: ADMIT Student in an Organized Health Care Education/Training Program; ATTEND Student in an Organized Health Care Education/Training Program
PROC: 0JBJ0ZZ Excision of Right Hand Subcutaneous Tissue and Fascia, Open Approach (ICD-10-PCS; principal; 2024-07-01 08:00)
DX: A41.9 Sepsis, unspecified organism (principal); L03.113 Cellulitis of right upper limb; L02.511 Cutaneous abscess of right hand; F15.90 Other stimulant use, unspecified, uncomplicated

== ENCOUNTER 2024-07-03 14:49 | Outpatient (CLI) | payer OTHER, SELFPAY ==
[~2024-07-03] VITALS: Ht 165.1 cm; Wt 78.4 kg
[~2024-07-03 14:49] MED LIST changes: +DALV1SOL IV
[2024-07-03] MEDS: DALBAVANCIN 1,500 MG in D5W 250 ML IV ONE (16:24)
== END 2024-07-03 18:01 | disposition home or self-care (01) ==
LOC: M OPCLI4PV 14:49 → M MSPAV 16:08 → M OPCLI4PV 18:01
PROVIDERS: ATTEND Student in an Organized Health Care Education/Training Program
DX: L03.011 Cellulitis of right finger (principal); A49.01 Methicillin susceptible Staphylococcus aureus infection, unspecified site
CPT/HCPCS: 96365; J0875

== ENCOUNTER 2024-07-04 08:24 | Emergency (ER) | payer OTHER ==
[~2024-07-04] VITALS: Ht 165.1 cm; Wt 73.0 kg
[2024-07-04 08:34] VITALS: BP 131/80; TEMP 98.5; O2SAT 98
== END 2024-07-04 08:38 | disposition left against medical advice (07) ==
LOC: M ED 08:24
DX: Z53.21 Procedure and treatment not carried out due to patient leaving prior to being seen by health care provider (principal)

== ENCOUNTER 2024-07-05 00:38 | Emergency (ER) | payer OTHER, SELFPAY ==
[~2024-07-05] VITALS: Ht 165.1 cm; Wt 69.0 kg
[2024-07-05 00:40] VITALS: BP 139/80; TEMP 97.9; O2SAT 99
== END 2024-07-05 06:31 | disposition left against medical advice (07) ==
LOC: M ED 00:38
DX: Z53.21 Procedure and treatment not carried out due to patient leaving prior to being seen by health care provider (principal)

== ENCOUNTER 2024-07-16 17:49 | Emergency (ER) | payer SELFPAY ==
[~2024-07-16] VITALS: Ht 165.1 cm; Wt 63.9 kg
[2024-07-16 17:51] VITALS: BP 134/85; TEMP 97.7; O2SAT 100
[2024-07-16 18:37] LABS: KETONE, URINE AUTO RFX NEGATIVE (NEGATIVE); LEUKOCYTE ESTERASE UR AUTO RFX NEGATIVE (NEGATIVE); NITRITE, URINE AUTO RFX NEGATIVE (NEGATIVE); RBC, URINE AUTO RFX 0 /HPF (0-3); SQUAM EPITHELIAL CELL UR AURFX 0 /HPF (0-6); WBC, URINE AUTO RFX 0 /HPF (0-3)
== END 2024-07-16 19:52 | disposition left against medical advice (07) ==
LOC: M ED 17:49
DX: Z53.21 Procedure and treatment not carried out due to patient leaving prior to being seen by health care provider (principal)

== ENCOUNTER 2024-07-29 23:06 | Emergency (ER) | payer SELFPAY ==
[~2024-07-29] VITALS: Ht 165.1 cm; Wt 65.3 kg
[2024-07-29 23:10] VITALS: BP 136/91; TEMP 97.3; O2SAT 98
== END 2024-07-30 02:05 | disposition left against medical advice (07) ==
LOC: M ED 23:06
DX: Z53.21 Procedure and treatment not carried out due to patient leaving prior to being seen by health care provider (principal)

== ENCOUNTER 2024-07-30 11:01 | Emergency (ER) | payer SELFPAY ==
[~2024-07-30] VITALS: Ht 165.1 cm; Wt 63.5 kg
[2024-07-30 13:10] LABS: BASO % 0.2 % (0.0-1.0); EOS # 0.1 10^3/uL (0.0-0.5); EOS % 0.5 % (0.0-3.0); HEMATOCRIT 43.1 % (42.0-52.0); HEMOGLOBIN 14.6 g/dl (13.5-17.5); LYMPH # 1.3 10^3/uL (1.5-5.0); LYMPH % 9.9 % (24.0-44.0); MEAN CORPUSCULAR HEMOGLOBIN 29.7 pg (27.0-33.0); MEAN CORPUSCULAR HGB CONC 33.9 g/dl (32.0-36.5); MEAN CORPUSCULAR VOLUME 87.8 fl (80.0-96.0); MONO # 0.8 10^3/uL (0.0-0.8); MONO % 5.9 % (2.0-8.0); NEUTROPHILS # 10.8 10^3/uL (1.5-8.5); NEUTROPHILS % 83.2 % (36.0-66.0); PLATELET COUNT, AUTOMATED 288 10^3/uL (150-450); RED BLOOD COUNT 4.91 10^6/uL (4.30-6.10); WHITE BLOOD COUNT 12.9 10^3/uL (4.0-10.0)
[2024-07-30 13:52] LABS: ALKALINE PHOSPHATASE 102 U/L (40-129); ALT/SGPT 37 U/L (7.0-40); AST/SGOT 31 U/L (<34); BILIRUBIN,DIRECT 0.2 MG/DL (<0.4); BILIRUBIN,TOTAL 0.8 MG/DL (0.3-1.2); BLOOD UREA NITROGEN 13 MG/DL (9-23); CALCIUM LEVEL 9.5 MG/DL (8.5-10.1); CARBON DIOXIDE LEVEL 27 MMOL/L (20-31); CHLORIDE LEVEL 100 MMOL/L (98-107); CREATININE FOR GFR 0.55 MG/DL (0.70-1.30); GLOMERULAR FILTRATION RATE > 90.0 (>60); GLUCOSE, FASTING 126 MG/DL (60-100); LIPASE 24 U/L (12-53); SODIUM LEVEL 136 MMOL/L (136-145); TOTAL PROTEIN 7.1 G/DL (5.7-8.2)
[2024-07-30 14:39] LABS: KETONE, URINE AUTO RFX NEGATIVE (NEGATIVE); LEUKOCYTE ESTERASE UR AUTO RFX NEGATIVE (NEGATIVE); MUCUS, URINE RFX SMALL (NEGATIVE); NITRITE, URINE AUTO RFX NEGATIVE (NEGATIVE); RBC, URINE AUTO RFX 2 /HPF (0-3); SQUAM EPITHELIAL CELL UR AURFX 0 /HPF (0-6); WBC, URINE AUTO RFX 0 /HPF (0-3)
[2024-07-30] MEDS: NS (Normal Saline) 0.9% 1,000 ML IV ONE (15:25)
[2024-07-30] MEDS ORDERED: ISOVUE-370 76% 100ML VIAL As Ordered ONE (15:57)
[2024-07-30 17:20] LABS: BARBITURATES URINE NEGATIVE (NEGATIVE); BENZODIAZEPINES URINE NEGATIVE (NEGATIVE); CANNABINOIDS URINE NEGATIVE (NEGATIVE); COCAINE METABOLITE URINE NEGATIVE (NEGATIVE); METHADONE URINE NEGATIVE (NEGATIVE); OPIATES URINE NEGATIVE (NEGATIVE); PHENCYCLIDINE URINE NEGATIVE (NEGATIVE)
[2024-07-30 17:22] LABS: AMPHETAMINES LEVEL URINE POSITIVE (NEGATIVE)
[2024-07-30 17:30] VITALS: BP 133/86; TEMP 96.4; O2SAT 100
== END 2024-07-30 17:44 | disposition home or self-care (01) ==
LOC: M ED 11:01 → EDBD 11:01 → M ED 17:44
DX: K29.70 Gastritis, unspecified, without bleeding (principal); F15.10 Other stimulant abuse, uncomplicated; F19.10 Other psychoactive substance abuse, uncomplicated
CPT/HCPCS: 36415; 74177; 80047; 80048; 80076; 80307; 81001; 83605; 83690; 85025; 99284; Q9967

== ENCOUNTER 2024-10-12 17:22 | Emergency (ER) | payer MEDICAID ==
[~2024-10-12] VITALS: Ht 172.7 cm; Wt 75.0 kg
[2024-10-12] MEDS: KETOROLAC 60 MG/2 ML VIAL IM ONE (19:43)
[2024-10-12 19:45] LABS: BASO # 0.1 10^3/uL (0.0-0.2); BASO % 0.7 % (0.0-1.0); EOS # 0.5 10^3/uL (0.0-0.5); EOS % 3.7 % (0.0-3.0); LYMPH # 3.7 10^3/uL (1.5-5.0); LYMPH % 27.8 % (24.0-44.0); MONO # 1.3 10^3/uL (0.0-0.8); MONO % 9.8 % (2.0-8.0); NEUTROPHILS # 7.6 10^3/uL (1.5-8.5); NEUTROPHILS % 57.7 % (36.0-66.0); PLATELET COUNT, AUTOMATED 390 10^3/uL (150-450)
[2024-10-12 20:18] LABS: CK-MB VALUE MASS 36.5 NG/ML (<3.6)
[2024-10-12 20:20] LABS: ALT/SGPT 67 U/L (7.0-40); AST/SGOT 143 U/L (<34); CALCIUM LEVEL 9.2 MG/DL (8.5-10.1); CARBON DIOXIDE LEVEL 23 MMOL/L (20-31); CHLORIDE LEVEL 104 MMOL/L (98-107); CREATININE FOR GFR 0.85 MG/DL (0.70-1.30); GLOMERULAR FILTRATION RATE > 90.0 (>60); POTASSIUM SERUM 4.3 MMOL/L (3.5-5.1); SODIUM LEVEL 140 MMOL/L (136-145)
[2024-10-12 20:32] LABS: CPK CREATINE PHOSPHOKINASE 3984 U/L (46-171); MB/CK RELATIVE INDEX 0.91 (< OR =4)
[2024-10-12] MEDS: NS (Normal Saline) 0.9% 1,000 ML IV ONE (21:49)
[2024-10-12 23:32] VITALS: BP 122/62; TEMP 98.6; O2SAT 99
[2024-10-13] MEDS ORDERED: BUPR1SUB5 SL (13:29)
== END 2024-10-13 00:07 | disposition home or self-care (01) ==
LOC: M ED 17:22
DX: F19.10 Other psychoactive substance abuse, uncomplicated (principal); R74.8 Abnormal levels of other serum enzymes; F17.290 Nicotine dependence, other tobacco product, uncomplicated; R00.0 Tachycardia, unspecified; Z79.899 Other long term (current) drug therapy
CPT/HCPCS: 80048; 80076; 82550; 82553; 84484; 85025; 93005; 96360; 96361; 99284; J1885

== ENCOUNTER 2024-10-13 03:53 | Emergency (ER) | payer MEDICAID ==
[~2024-10-13] VITALS: Ht 165.1 cm; Wt 80.0 kg
[2024-10-13] MEDS ORDERED: BUPR1SUB5 SL (13:29)
[2024-10-13] MEDS ORDERED: HOME MED LIST COMPLETE! XX SCH (13:30)
[2024-10-13] MEDS: NS (Normal Saline) 0.9% 1,000 ML IV ONE (17:17)
[2024-10-13 17:25] LABS: BASO # 0.0 10^3/uL (0.0-0.2); BASO % 0.7 % (0.0-1.0); EOS # 0.7 10^3/uL (0.0-0.5); EOS % 11.3 % (0.0-3.0); LYMPH # 2.0 10^3/uL (1.5-5.0); LYMPH % 33.4 % (24.0-44.0); MONO # 0.5 10^3/uL (0.0-0.8); MONO % 7.5 % (2.0-8.0); NEUTROPHILS # 2.8 10^3/uL (1.5-8.5); NEUTROPHILS % 46.9 % (36.0-66.0); PLATELET COUNT, AUTOMATED 320 10^3/uL (150-450)
[2024-10-13 17:53] LABS: CALCIUM LEVEL 8.6 MG/DL (8.5-10.1); CARBON DIOXIDE LEVEL 27 MMOL/L (20-31); CHLORIDE LEVEL 104 MMOL/L (98-107); CREATININE FOR GFR 0.64 MG/DL (0.70-1.30); GLOMERULAR FILTRATION RATE > 90.0 (>60); POTASSIUM SERUM 4.7 MMOL/L (3.5-5.1); SODIUM LEVEL 140 MMOL/L (136-145)
[2024-10-13 18:29] LABS: CPK CREATINE PHOSPHOKINASE 1574 U/L (46-171)
[2024-10-13 18:32] VITALS: TEMP 97.2
[2024-10-13 18:36] LABS: HEPATITIS C VIRUS ABY INDEX < 0.02 INDEX (<0.8)
[2024-10-13 19:01] VITALS: BP 125/75
[2024-10-13 19:02] VITALS: O2SAT 100
== END 2024-10-13 19:14 | disposition home or self-care (01) ==
LOC: M ED 03:53
DX: F15.10 Other stimulant abuse, uncomplicated (principal); M62.82 Rhabdomyolysis; F17.200 Nicotine dependence, unspecified, uncomplicated
CPT/HCPCS: 80048; 80074; 82550; 85025; 96372; 96374; 96376; 99285; J2060

== ENCOUNTER 2024-12-01 21:41 | Emergency (ER) | payer MEDICAID, OTHER ==
[~2024-12-01] VITALS: Ht 165.1 cm; Wt 68.7 kg
[~2024-12-01 21:41] MED LIST changes: +BUPR1SUB5 SL
[2024-12-02] MEDS: TRIAMCINOLONE ACET 0.1% CREAM 80GM TOP STA (00:32)
[2024-12-02] MEDS ORDERED: PERM60CR8 TOP (00:35)
[2024-12-02 01:23] VITALS: BP 122/78; TEMP 97.8; O2SAT 97
== END 2024-12-02 01:24 | disposition home or self-care (01) ==
LOC: M ED 21:41
DX: R21 Rash and other nonspecific skin eruption (principal); F19.10 Other psychoactive substance abuse, uncomplicated; Z79.899 Other long term (current) drug therapy

== ENCOUNTER 2025-01-05 04:31 | Emergency (ER) | payer OTHER ==
[~2025-01-05] VITALS: Ht 165.1 cm; Wt 69.1 kg
[~2025-01-05 04:31] MED LIST changes: +PERM60CR8 TOP
[2025-01-05 04:33] VITALS: BP 125/89; TEMP 97.8
[2025-01-05 10:46] VITALS: O2SAT 98
== END 2025-01-05 11:00 | disposition left against medical advice (07) ==
LOC: M ED 04:31
DX: F32.A Depression, unspecified (principal); F19.10 Other psychoactive substance abuse, uncomplicated; Z79.899 Other long term (current) drug therapy; Z53.9 Procedure and treatment not carried out, unspecified reason

== ENCOUNTER 2025-01-26 15:56 | Emergency (ER) | payer OTHER ==
[~2025-01-26] VITALS: Ht 165.1 cm; Wt 68.4 kg
[2025-01-26 16:55] LABS: BASO # 0.1 10^3/uL (0.0-0.2); BASO % 0.5 % (0.0-1.0); EOS # 0.2 10^3/uL (0.0-0.5); EOS % 2.2 % (0.0-3.0); LYMPH # 3.1 10^3/uL (1.5-5.0); LYMPH % 29.4 % (24.0-44.0); MONO # 0.5 10^3/uL (0.0-0.8); MONO % 4.8 % (2.0-8.0); NEUTROPHILS # 6.5 10^3/uL (1.5-8.5); NEUTROPHILS % 62.5 % (36.0-66.0); PLATELET COUNT, AUTOMATED 451 10^3/uL (150-450)
[2025-01-26] MEDS: NS (Normal Saline) 0.9% 1,000 ML IV ONE (17:24)
[2025-01-26 17:26] LABS: ETHYL ALCOHOL (ETHANOL) 0.004 % (0.000-0.010)
[2025-01-26 17:27] LABS: CPK CREATINE PHOSPHOKINASE 245 U/L (46-171); SALICYLATE LEVEL < 3.0 MG/DL (<30)
[2025-01-26 17:43] LABS: ALT/SGPT 29 U/L (7.0-40); AST/SGOT 31 U/L (<34); CALCIUM LEVEL 9.9 MG/DL (8.5-10.1); CARBON DIOXIDE LEVEL 32 MMOL/L (20-31); CHLORIDE LEVEL 102 MMOL/L (98-107); CREATININE FOR GFR 0.99 MG/DL (0.70-1.30); GLOMERULAR FILTRATION RATE > 90.0 (>60); POTASSIUM SERUM 3.9 MMOL/L (3.5-5.1); SODIUM LEVEL 144 MMOL/L (136-145)
[2025-01-26] MEDS: ONDANSETRON 4MG ORAL DISINTEGRATING TAB PO ONE (20:45)
[2025-01-26 20:48] VITALS: BP 122/73
[2025-01-26 22:03] VITALS: TEMP 97; O2SAT 97
== END 2025-01-26 22:05 | disposition home or self-care (01) ==
LOC: M ED 15:56 → EDBD 15:56 → M ED 22:05
DX: F19.10 Other psychoactive substance abuse, uncomplicated (principal); F12.10 Cannabis abuse, uncomplicated; Z79.899 Other long term (current) drug therapy

== ENCOUNTER 2025-02-02 19:51 | Emergency (ER) | payer OTHER ==
[~2025-02-02] VITALS: Ht 165.1 cm; Wt 72.0 kg
[2025-02-02 19:54] VITALS: BP 147/87; TEMP 98.6; O2SAT 98
[2025-02-02 20:40] LABS: PLATELET COUNT, AUTOMATED 420 10^3/uL (150-450)
[2025-02-02 21:07] LABS: ETHYL ALCOHOL (ETHANOL) 0.003 % (0.000-0.010)
[2025-02-02 21:09] LABS: SALICYLATE LEVEL < 3.0 MG/DL (<30)
[2025-02-02 21:19] LABS: ALT/SGPT 29 U/L (7.0-40); AST/SGOT 34 U/L (<34); CALCIUM LEVEL 8.5 MG/DL (8.5-10.1); CARBON DIOXIDE LEVEL 31 MMOL/L (20-31); CHLORIDE LEVEL 103 MMOL/L (98-107); CREATININE FOR GFR 0.97 MG/DL (0.70-1.30); GLOMERULAR FILTRATION RATE > 90.0 (>60); POTASSIUM SERUM 4.2 MMOL/L (3.5-5.1); SODIUM LEVEL 142 MMOL/L (136-145)
== END 2025-02-02 21:49 | disposition home or self-care (01) ==
LOC: M ED 19:51
DX: F43.0 Acute stress reaction (principal); F32.A Depression, unspecified; Z79.899 Other long term (current) drug therapy

== ENCOUNTER 2025-02-25 21:09 | Emergency (ER) | payer OTHER ==
[~2025-02-25] VITALS: Ht 165.1 cm; Wt 72.7 kg
[2025-02-25 21:18] VITALS: TEMP 98.2
[2025-02-25 23:28] VITALS: BP 123/65; O2SAT 97
== END 2025-02-26 01:14 | disposition left against medical advice (07) ==
LOC: M ED 21:09
DX: Z53.21 Procedure and treatment not carried out due to patient leaving prior to being seen by health care provider (principal)